=== PATIENT | male | born 1935 | race Caucasian/White ===

== ENCOUNTER 2017-08-17 19:31 | Emergency (ER) | payer OTHER, MEDICARE | END 2017-08-17 21:16 | disposition home or self-care (01) | LOC: E/R 19:31 | DX: Z46.6 Encounter for fitting and adjustment of urinary device (principal); I10 Essential (primary) hypertension; J44.9 Chronic obstructive pulmonary disease, unspecified; E66.9 Obesity, unspecified; Z79.01 Long term (current) use of anticoagulants; Z87.891 Personal history of nicotine dependence | CPT/HCPCS: 51702; 99283-25 ==

== ENCOUNTER 2017-09-13 08:06 | Emergency (ER) | payer OTHER, MEDICARE ==
[2017-09-13] MEDS: LIDOCAINE 1%/EPI (MDV) 50 ML INJ INJ (08:59)
[2017-09-13 09:13] LABS: PROTIME 22.2 Sec (11.9-14.9); PT RATIO 1.7
[2017-09-13 09:15] LABS: PARTIAL THROMBOPLASTIN TIME 52.4 Sec (25.0-35.0)
[2017-09-13] MEDS: hydrOXYzine HCL 25 MG TAB PO (10:14)
== END 2017-09-13 11:29 | disposition home or self-care (01) ==
LOC: E/R 08:06
DX: S12.9XXA Fracture of neck, unspecified, initial encounter (principal); R79.1 Abnormal coagulation profile; J44.9 Chronic obstructive pulmonary disease, unspecified; I10 Essential (primary) hypertension; E66.9 Obesity, unspecified; W01.198A Fall on same level from slipping, tripping and stumbling with subsequent striking against other object, initial encounter; Y92.121 Bathroom in nursing home as the place of occurrence of the external cause; Z68.29 Body mass index [BMI] 29.0-29.9, adult; Z79.01 Long term (current) use of anticoagulants
CPT/HCPCS: 12001; 70450; 72125; 85610; 85730; 99285-25

== ENCOUNTER 2017-12-23 07:50 | Emergency (ER) | payer OTHER, MEDICARE | END 2017-12-23 10:11 | disposition home or self-care (01) | LOC: E/R 07:50 | DX: T85.9XXA Unspecified complication of internal prosthetic device, implant and graft, initial encounter (principal); I10 Essential (primary) hypertension; J44.9 Chronic obstructive pulmonary disease, unspecified; E66.9 Obesity, unspecified; Y73.2 Prosthetic and other implants, materials and accessory gastroenterology and urology devices associated with adverse incidents; Z68.28 Body mass index [BMI] 28.0-28.9, adult; Z79.01 Long term (current) use of anticoagulants; Z87.891 Personal history of nicotine dependence | CPT/HCPCS: 51702; 99283-25 ==